=== PATIENT | male | born 1995 | race Caucasian/White ===

== ENCOUNTER 2024-08-09 10:55 | Emergency (ER) | payer BC ==
[2024-08-09] MEDS: Diphtheria,Pertussis(Acell),Tetanus Vaccine 0.5 ML Syringe IM ONE (11:17)
[2024-08-09] MEDS: Lidocaine 1% 5 ML VIAL INJECT ONE (11:18)
[2024-08-09] MEDS: Bacitracin Oint 1 GM U/D Packet TOP ONE (11:45)
== END 2024-08-09 11:50 | disposition home or self-care (01) ==
LOC: DL.ED 10:55
DX: S61.211A Laceration without foreign body of left index finger without damage to nail, initial encounter (principal); Z23 Encounter for immunization; W31.1XXA Contact with metalworking machines, initial encounter
CPT/HCPCS: 12001; 90471; 90715; 99282-25; A9270-GY; J3490